=== PATIENT | male | born 1990 | race African-American/Black ===

== ENCOUNTER 2017-04-28 15:16 | Emergency (ER) | payer OTHER ==
[~2017-04-28] VITALS: Ht 172.7 cm; Wt 67.0 kg
[2017-04-28] MEDS ORDERED: INDOCIN50 MG PO (16:22)
[2017-04-28] MEDS ORDERED: LIDOCAINE20 MG/1 M5 PO (16:22)
[2017-04-28] MEDS ORDERED: PREDNISONE20 MG PO (16:22)
[2017-04-28] MEDS ORDERED: PEN-VEE K,VEET500 MG PO (16:22)
[2017-04-28 16:46] VITALS: BP 125/86
== END 2017-04-28 16:47 | disposition home or self-care (01) ==
LOC: EME 15:16
DX: K02.9 Dental caries, unspecified (principal); F17.200 Nicotine dependence, unspecified, uncomplicated
CPT/HCPCS: 99281; 99284; J7512

== ENCOUNTER 2017-07-07 03:40 | Emergency (ER) | payer OTHER ==
[~2017-07-07] VITALS: Ht 172.7 cm; Wt 68.7 kg
[~2017-07-07 03:40] MED LIST: INDOCIN50 MG PO; LIDOCAINE20 MG/1 M5 PO; PEN-VEE K,VEET500 MG PO; PREDNISONE20 MG PO
[2017-07-07] MEDS ORDERED: INDOCIN50 MG PO (03:56)
[2017-07-07] MEDS ORDERED: AMOXICILLIN500 MG PO (03:56)
[2017-07-07 04:15] VITALS: BP 155/95
== END 2017-07-07 04:16 | disposition home or self-care (01) ==
LOC: EME 03:40
DX: K02.9 Dental caries, unspecified (principal); F17.200 Nicotine dependence, unspecified, uncomplicated
CPT/HCPCS: 99281; 99283

== ENCOUNTER 2017-09-23 14:34 | Emergency (ER) | payer OTHER ==
[~2017-09-23] VITALS: Ht 175.3 cm; Wt 65.7 kg
[~2017-09-23 14:34] MED LIST changes: +AMOXICILLIN500 MG PO
[2017-09-23] MEDS ORDERED: TRAMADOL HCL50 MG PO (16:40)
[2017-09-23 16:59] VITALS: BP 129/78
== END 2017-09-23 16:49 | disposition home or self-care (01) ==
LOC: EME 14:34
DX: K02.9 Dental caries, unspecified (principal); S02.5XXA Fracture of tooth (traumatic), initial encounter for closed fracture; F17.200 Nicotine dependence, unspecified, uncomplicated
CPT/HCPCS: 99281; 99283; J1885